=== PATIENT | female | born 1940 | race Hispanic/Latino ===

== ENCOUNTER 2018-03-18 15:37 | Emergency (ER) | payer OTHER, MEDICARE ==
[~2018-03-18] VITALS: Ht 162.6 cm; Wt 72.6 kg
[~2018-03-18 15:37] MED LIST: CARAFATE1 G1 PO; CARVEDILOL25 M1 PO; CLOPIDOGREL75 M1 PO; FUROSEMIDE40 M1 PO; JANUVIA100 M1 PO; KEFLEX500 M1 PO; LISINOPRIL5 M1 PO; METFORMIN HCL1000 M2 PO; PANTOPRAZOLE SO40 M1 PO; SIMVASTATIN40 M1 PO; SINGULAIR10 M1 PO; TYLENOL WITH C1 EACH PO
--- NOTE | 2018-03-18 15:42 | ED UPPER/LOWER EXTREMITY COMPL ---
History of Present Illness General Chief Complaint: General Adult Stated Complaint: CYST DRAINED? Source: patient Exam Limitations: no limitations Vital Signs & Intake/Output Vital Signs & Intake/Output Vital Signs Date Time Temp Pulse Resp B/P B/P Pulse O2 O2 Flow FiO2 Mean Ox Delivery Rate 03/18 1551 98 03/18 1550 97.1 68 18 131/77 98 Room Air Allergies Coded Allergies: aspirin (Intermediate, CHEST TIGHTNESS 02/20/16) vancomycin (RASH 02/20/16) amoxicillin (HALLUCINATION 02/20/16) Uncoded Allergies: ANESTETICS (HALOALKANE) (UNKNOWN 02/20/16) Reconcile Medications Carvedilol 25 MG TABLET 1 TAB PO BID HEART (Reported) Cephalexin (Keflex) 500 MG CAPSULE 1 CAP PO BID FOOT LACERATION Clopidogrel Bisulfate (Clopidogrel) 75 MG TABLET 1 TAB PO DAILY anticoagulation Furosemide 40 MG TABLET 1 TAB PO DAILY EDEMA (Reported) PT TAKES NEEDED FOR EDMEA Lisinopril 5 MG TABLET 1 TAB PO DAILY HTN (Reported) Metformin HCl (Metformin HCl ER) 1,000 MG TAB.ER.24 1 TAB PO DAILY DM ( Reported) Montelukast Sodium (Singulair) 10 MG TABLET 1 TAB PO DAILY ALLERGIES ( Reported) Simvastatin (Simvastatin*) 40 MG TABLET 1 TAB PO QPM CHOLESTEROL (Reported) Sitagliptin Phosphate (Januvia) 100 MG TABLET 1 TAB PO DAILY DM (Reported) Tylenol With Codeine (Tylenol With Codeine #3 Tablet) 300 MG-30 MG TABLET 1 TAB PO BIDP PRN PAIN Triage Nurses Notes Reviewed? yes Onset: Abrupt Duration: constant Timing: recent history Severity: mild Severity Numbers: 1 HPI: Patient 77-year-old female who presents emergency room with concerns of last week. Evaluated here by me at [place] emergency room for concerns of a laceration to her left dorsal aspect of her foot where she received #4 sutures patient denies any fever chills pain and swelling discharge and is otherwise without complaints. (Boo Hansen) Past History Medical History Any Pertinent Medical History? 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 No (Boo Hansen) Review of Systems Review of Systems Constitutional: Reports: no symptoms. EENTM: Reports: no symptoms. Respiratory: Reports: no symptoms. Cardiovascular: Reports: no symptoms. Gastrointestinal/Abdominal: Reports: no symptoms. Genitourinary: Reports: no symptoms. Musculoskeletal: Reports: no symptoms. Skin: Reports: see HPI. Neurological/Psychological: Reports: no symptoms. Hematologic/Endocrine: Reports: no symptoms. Immunological: Reports: no symptoms. All Other Systems: Reviewed and Negative (Boo Hansen) Physical Exam Physical Exam General Appearance: no apparent distress, alert Head: atraumatic Eyes: Bilateral: normal appearance. Ears, Nose, Throat: hearing grossly normal Neck: normal inspection Cardiovascular/Respiratory: no respiratory distress Peripheral Pulses: 2+ dorsalis pedis (L) Neurologic/Tendon: normal sensation, normal motor functions, normal tendon functions, responds to pain, no evidence tendon injury, no pulse deficit Skin: intact, normal color, warm/dry Diagram Feet Top 1) Noted well healing 1.5 cm laceration with #4 intact sutures was no surrounding erythema warmth discharge dermatomes intact (Boo Hansen) Progress Differential Diagnosis: arterial insufficiency, compartment syndrome, contusion, dislocation, DVT, fracture, gout, septic arthritis, sprain, tendon injury Plan of Care: The laceration site looks well healing no signs of infection #4 sutures were removed without complications bacitracin and bandage was applied (Boo Hansen) Departure Departure Disposition: HOME OR SELF CARE Condition: Stable Clinical Impression Primary Impression: Visit for wound check Secondary Impressions: Visit for suture removal Referrals: Jovon Mahmood MD (PCP/Family) Additional Instructions: As discussed apply bacitracin to return with bandage 1 more day tomorrow and THEN LEAVE AREA open to improve healing. If you note signs of infection return to emergency room Departure Forms: Customer Survey General Discharge Information (Boo Hansen) PA/HEEL BREASTER Co-Sign Statement Statement: ED Attending supervision documentation- [] I saw and evaluated the patient. I have also reviewed all the pertinent lab results and diagnostic results. I agree with the findings and the plan of care as documented in the PA's/HEEL BREASTER's documentation. [X] I have reviewed the ED Record and agree with the PA's/HEEL BREASTER's documentation. [] Additions or exceptions (if any) to the PAs/HEEL BREASTER's note and plan are summarized below: [] (Nitesh Milner DO)
[2018-03-18 15:50] VITALS: BP 131/77
== END 2018-03-18 15:55 ==
LOC: ERH 15:37
DX: Z48.00 Encounter for change or removal of nonsurgical wound dressing (principal)